=== PATIENT | female | born 1940 | race Caucasian/White ===

== ENCOUNTER 2017-05-16 14:13 | Outpatient (CLI) | payer MEDICARE, BC ==
[2015-12-16 14:18] VITALS: O2SAT 97
== END 2017-05-16 14:14 | disposition home or self-care (01) | DRG 554 ==
LOC: CONVCARE 14:13
PROVIDERS: ATTEND Orthopaedic Surgery
DX: M17.11 Unilateral primary osteoarthritis, right knee (principal)
CPT/HCPCS: 73564

== ENCOUNTER 2017-10-31 15:19 | Emergency (ER) | payer MEDICARE, BC ==
[2017-10-31] MEDS ORDERED: ASPIRIN 81 MG CHEWABLE CTB PO ONE (15:30)
[2017-10-31] MEDS ORDERED: NITROGLYCERIN 0.4 MG TAB SL PRN (15:30)
[2017-10-31 15:35] LABS: BASOPHILS % (AUTO) 1 % (0-3); EOSINOPHILS % (AUTO) 1 % (0-9); HEMATOCRIT 42 % (35-47); MEAN CORPUSCULAR HGB CONC 33.5 gm/dl (32.0-36.0); MONOCYTES % (AUTO) 8.7 % (0-12); NEUTROPHILS % (AUTO) 66.3 % (37-80)
[2017-10-31 15:41] LABS: MEAN CORPUSCULAR VOLUME 80 fL (81-99)
[2017-10-31 16:06] LABS: ALBUMIN 3.8 gm/dl (3.4-5.0); CALCIUM 9.7 mg/dl (8.5-10.1); POTASSIUM 3.6 mMol/L (3.5-5.1)
[2017-10-31] MEDS ORDERED: HEPARIN SODIUM 5000 U/ML SOL IV ONE (16:18)
[2017-10-31 16:22] VITALS: TEMP 97.8
[2017-10-31] MEDS ORDERED: HEPARIN PREMIX 25,000 U/250 ML SOL IV PRN (16:30)
[2017-10-31] MEDS ORDERED: METOPROLOL TARTRATE 5 MG/5 ML SOL IV SCH (16:30)
[2017-10-31] MEDS ORDERED: HEPARIN SODIUM 5000 U/ML SOL ONE (16:33)
[2017-10-31 16:46] VITALS: RESP 17
[2017-10-31] MEDS ORDERED: METOPROLOL TARTRATE 5 MG/5 ML SOL IV ONE (16:48)
[2017-10-31 17:15] VITALS: BP 143/87; PULSE 86; O2SAT 96
== END 2017-10-31 17:16 | disposition short-term general hospital (02) | DRG 282 ==
LOC: ED 15:19
DX: I21.9 Acute myocardial infarction, unspecified (principal); E03.9 Hypothyroidism, unspecified
CPT/HCPCS: 36415; 71010; 71270; 74170; 80053; 84443; 84484; 85025; 85378; 85610; 85730; 93005; 99285; J1644; Q9967